=== PATIENT | male | born 1960 ===

== ENCOUNTER 2017-07-25 18:47 | Inpatient (IN) | payer BC, OTHER ==
[~2017-07-25] VITALS: Ht 182.9 cm; Wt 104.3 kg
[2017-07-25] MEDS ORDERED: LORAZEPAM 1 MG TABLET PO PRN ×2 (20:15)
[2017-07-25] MEDS ORDERED: ONDANSETRON ODT 4 MG TAB.RAPDIS SL PRN (20:15)
[2017-07-25] MEDS ORDERED: hydrALAZINE HCL 50 MG TABLET PO PRN (20:15)
[2017-07-25] MEDS ORDERED: LORAZEPAM 2 MG/1 ML VIAL IM PRN (20:15)
[2017-07-25] MEDS ORDERED: diphenhydrAMINE 50 MG CAPSULE PO PRN (20:15)
[2017-07-25] MEDS ORDERED: DICYCLOMINE HCL 20 MG TABLET PO PRN (20:15)
[2017-07-25] MEDS ORDERED: ONDANSETRON 4 MG/2 ML VIAL IM PRN (20:15)
[2017-07-25] MEDS ORDERED: MIRALAX 17 GM POWD.PACK PO PRN (20:15)
[2017-07-25] MEDS ORDERED: MAGNESIUM HYDROXIDE 30 ML LIQUID UDC PO PRN (20:15)
[2017-07-25] MEDS ORDERED: IBUPROFEN 400 MG TABLET PO PRN (20:15)
[2017-07-25] MEDS ORDERED: LOPERAMIDE HCL 2 MG CAPSULE PO PRN ×2 (20:15)
--- NOTE | 2017-07-25 20:25 | NUR ---
PRE ADMISSION NOTE Pt is a 57 y/o male seen at intake, A & O x 4, and presents with anxiety, agitation, restlessness, tremors, sweats, flushed skin, generalized pain r/t chronic and acute medical conditions 8/10, visual disturbances, slumped posture, disheveled appearance and flat affect. Pt is ambulatory with cane for assistance. Pt reports PMH of anxiety, depression, bipolar disorder, HTN, IBS, gout, venous thromboembolic disease, rheumatoid arthritis, 10th rib fx (10 days ago), umbilical hernia, spondylosis with history of left shoulder repair x 2, pneumonia, stomach ulcers, back injury and L5/S1 spinal surgery. Pt has history of falls, last being in April 2017. Vitals signs are as follows: 144/93, HR 114, RR 18, 02 95%, Pain 8/10. Pt denies seizure hx and reports NKA. Pt arrived from a treatment facility for medically supervised detox. Pt brought home medications, instructed patient that any controlled substances will not be given back, pt verbalized understanding. Educated patient rules and policies of the unit including handling of contraband and taking vital signs Q4H. Will continue care of patient upon arrival on unit.
--- NOTE | 2017-07-25 20:36 | NUR ---
ADMISSION NOTE Pt is a 57 y/o male arrived on the unit at 2035 on 07/25/17 for medically supervised withdrawal from ETOH (Vodka/Tequila). Pt reports his last drink was on Tuesday07/22/17 and is currently in withdrawal. Pt reports he was at a treatment facility for 2.5 days and was started on an Ativan taper, but d/t worsening withdrawal, diarrhea and unstable gait was recommended to a medially supervised detox and therefore transferred to this facility today. Substance Use History: 1. Vodka or Tequila 750 ml daily, last intake of 750 ml on 07/22/17, at this rate for 4 years. Pt is A&Ox4, speech is slow and lethargic. Pt appears disheveled and umkempt with poor eye contact and presents with anxiety, agitation, restlessness, tremors, difficulty concentrating, sweats, flushed skin, tachycardia, pain everywhere 8/10, visual disturbances and flat affect. Pt unable to state exact S/S of withdrawal r/t difficulty concentrating, stated "I just feel hungover." Vitals signs are as follows: BP 144/93, HR 114, RR 18, 02 95%, Pain 8/10. Pulse regular but tachycardic. Respirations even and unlabored. Lung sounds clear. Bowel sound active in all 4 quadrants. Pt has distended abdomen with umbilical hernia. Pt reports having diarrhea, last BM this morning. Pt has dry/cracked skin on left heel. Pt is full code, NKA, regular diet and on fall/seizure precautions. Skin and body check completed, skin intact and no contraband bound. Initial CIWA 12. Pt is 60 and weighs 230 lbs. Pt not candidate for MRSA, denies being hospitalized or in group home in past 30 days. Pt reports smoking 3 cigars daily, denies smoking cigarettes, denies interest in smoking cessation at this time. Pt refuses pneumonia vaccine. Denies family medical or substance use history. Pt reports his longest sober period was 2 days, approximately 4 years ago. Pt reports going to [facility] treatment facility at unknown date and treatment facility with unknown name in [place] for 2.5 days prior to arrival. Pt states he has a limited support system and that his from him in December 2016. Pt has no children or friends for support. Pt lives in his car. Pt is on disability and is unemployed. Pt states "I don't want to be living like this anymore...I also want my back." Pt states he is "ready to get fully detoxed and continue with further treatment to help." Pt states he has been drinking daily r/t his recent marriage separation, cravings and chronic and acute pains. Pts primary care doctor is Dr. Matthew Ramirez, flat machine cutter Dr. Fausto Adams and his material assistant is Dr. Mehran Trejo. Pt reports PMH of anxiety, depression, bipolar disorder, HTN, IBS, gout, insomnia, venous thromboembolic disease, rheumatoid arthritis, 10th rib fx (10 days ago), umbilical hernia, spondylosis with history of left shoulder repair x 2, pneumonia, stomach ulcers, back injury and L5/S1 spinal surgery. Pt had outpatient treatment for rib fx 10 days prior to admission. Pt has history of falls, last being in April 2017. Pt takes the following home medications: Tylenol, Amlopdipine, Chlorthalidone, Benadryl, Doxycycline monohydrate, Folic Acid, Gabapentin, Hydroxyzine Pamoate, Methocarbomol succinate, Olanzapine, Ondansetron, Predisone, Thiamine Hcl, Trazodone, Valsartan, Venlafaxine Hcl, Vitamin K2 and Warfarin. Addendum: 07/26/17 at 0646 by SHEELA SY RN Additional information: Pt reports history of pulmonary embolism and DVT in right thigh approximately 8 years ago. Pt placed on 1:1 for fall precautions/safety. Stool culture sample to be obtained per orders. VTE pumps in place per orders.
[2017-07-25] MEDS ORDERED: PATIENT MAY USE OWN MED- MD OK PO SCH (21:00)
[2017-07-25] MEDS ORDERED: LORAZEPAM 1 MG TABLET PO SCH (21:00)
[2017-07-25] MEDS ORDERED: HYDR-3026 PO (21:29)
[2017-07-25] MEDS ORDERED: TRAZ-144 PO ×2 (21:29)
[2017-07-25] MEDS ORDERED: VENL37.591 PO (21:29)
[2017-07-25] MEDS ORDERED: VALS160T2 PO (21:29)
[2017-07-25] MEDS ORDERED: HYDR-3895 PO (21:29)
[2017-07-25] MEDS ORDERED: METH-406 PO (21:29)
[2017-07-25] MEDS ORDERED: GABA-534 PO (21:29)
[2017-07-25] MEDS ORDERED: OLAN5TAB30 PO (21:29)
[2017-07-25] MEDS ORDERED: FEBU40TA PO (21:29)
[2017-07-25] MEDS ORDERED: FOLI1TAB16 PO (21:29)
[2017-07-25] MEDS ORDERED: METO-357 PO (21:29)
[2017-07-25] MEDS ORDERED: CHLO25TA2 PO (21:29)
[2017-07-25] MEDS ORDERED: THIA100T13 PO (21:29)
[2017-07-25] MEDS ORDERED: ONDA4TAB10 PO (21:29)
[2017-07-25] MEDS ORDERED: AMLO10TA2 PO (21:29)
[2017-07-25 21:31] LABS: *AMPHETAMINE, URINE NEGATIVE (NEGATIVE); *BARBITURATE, URINE POSITIVE (NEGATIVE); *CANNABINOID, URINE NEGATIVE (NEGATIVE); *COCCAINE, URINE NEGATIVE (NEGATIVE); *OPIATE, URINE NEGATIVE (NEGATIVE); *PHENCYCLIDINE SCREEN,URINE NEGATIVE (NEGATIVE)
[2017-07-25] MEDS ORDERED: ACET-2154 PO (21:37)
[2017-07-25] MEDS ORDERED: DOXY100C41 PO (21:37)
[2017-07-25] MEDS ORDERED: DIPH25CA83 PO (21:37)
[2017-07-25] MEDS ORDERED: VITA40TA PO (21:37)
[2017-07-25] MEDS ORDERED: WARF-68 PO (21:37)
[2017-07-25] MEDS ORDERED: PRED20TA PO (21:37)
[2017-07-25] MEDS: [UNRECOGNIZED DRUG - OTHER] PO SCH (21:45)
[2017-07-25] MEDS: [UNRECOGNIZED DRUG - OTHER] PO SCH (21:45)
[2017-07-25] MEDS: METOPROLOL PO SCH (21:45)
[2017-07-25] MEDS: ACETAMINOPHEN 325 MG TABLET PO PRN (21:45)
--- NOTE | 2017-07-25 21:45 | NUR ---
MADDIE PEREIRA AND MOTRIN ADMINISTRATION Pt requests sleep aid and reports "pain all over," 12/09 r/t chronic and acute pains from rib injury, back injury, arthritis. Safety measures in place. Call light within reach. Will continue to monitor. Addendum: 07/26/17 at 0640 by SHEELA SY RN CORRECTION:TYLENOL ADMINISTRATION NOT MOTRIN
[2017-07-25 22:05] LABS: BASOPHILS # (AUTO) 0.1 K/uL (0.0-8.0); BASOPHILS % (AUTO) 0.7 % (0.0-2.0); EOSINOPHILS # (AUTO) 0.2 K/uL (0.0-0.7); EOSINOPHILS % (AUTO) 1.8 % (0.0-7.0); HEMATOCRIT 40.1 % (36.7-47.1); HEMOGLOBIN 13.6 g/dL (12.5-16.3); LYMPHOCYTES # (AUTO) 0.7 K/uL (20.0-40.0); LYMPHOCYTES % (AUTO) 8.8 % (20.5-51.5); MEAN CORPUSCULAR HEMOGLOBIN 33.9 uug (23.8-33.4); MEAN CORPUSCULAR HGB CONC 34 g/dL (32.5-36.3); MEAN CORPUSCULAR VOLUME 99.9 fL (73.0-96.2); MONOCYTES # (AUTO) 0.7 K/uL (2.0-10.0); MONOCYTES % (AUTO) 8.3 % (0.0-11.0); NEUTROPHILS # (AUTO) 6.8 K/uL (1.8-8.9); NEUTROPHILS % (AUTO) 80.4 % (38.5-71.5); PLATELET COUNT (AUTO) 160 K/uL (152-348); RED BLOOD CELL COUNT(AUTO) 4.01 MIL/uL (4.06-5.63); WHITE BLOOD COUNT (AUTO) 8.5 K/uL (3.6-10.2)
[2017-07-25 22:10] LABS: ETHANOL < 3 MG/DL (0-0)
[2017-07-25 22:18] LABS: ALANINE AMINOTRANSFERASE 31 U/L (16-63); ALKALINE PHOSPHATASE 85 U/L (50-136); AMYLASE 61 U/L (25-115); ASPARTATE AMINOTRANSFERASE 29 U/L (15-37); BILIRUBIN,TOTAL 0.9 mg/dL (0.2-1.0); CARBON DIOXIDE 27 mmol/L (21-32); CHLORIDE 97 mmol/L (98-107); GLUCOSE 95 mg/dL (74-106); MAGNESIUM 1.6 mg/dL (1.8-2.4); POTASSIUM 3.6 mmol/L (3.5-5.1); UREA NITROGEN, BLOOD 15 mg/dL (7-18); URIC ACID 6.1 mg/dL (3.5-7.2)
--- NOTE | 2017-07-25 22:45 | NUR ---
MADDIE PEREIRA AND BONI REASSESSMENT Pt laying in bed with eyes closed, medications noted effective. Respirations even and unlabored. Safety measures in place. Call light within reach. Will continue to monitor. Addendum: 07/26/17 at 0640 by SHEELA SY RN CORRECTION:TYLENOL ADMINISTRATION NOT MOTRIN
[2017-07-25] MEDS: MAGNESIUM OXIDE 400 MG TABLET PO ONE ×2 (23:15→23:33)
[2017-07-26] VITALS: BP 142/90
[2017-07-26 04:00] VITALS: BP 140/91
--- NOTE | 2017-07-26 04:00 | NUR ---
CIWA DEFERRED Pt laying in bed with eyes closed, CIWA deferred, to be assessed when pt is awake per orders. Respirations even and unlabored. Safety measures in place. 1:1 sitter at bedside. Will continue to monitor.
[2017-07-26] MEDS: ACETAMINOPHEN 325 MG TABLET PO PRN ×2 (06:28→20:08)
--- NOTE | 2017-07-26 06:28 | NUR ---
PRN TYLENOL ADMINISTRATION Pt reports pain 7/10 "all over." Safety measures in place. 1:1 sitter at bedside. Will continue to monitor.
--- NOTE | 2017-07-26 07:21 | NUR ---
END OF SHIFT Pt is a 57 y/o male admitted on 07/25/17 for ETOH withdrawal. Pt started a 5 day Ativan taper on 07/25/17, tolerated first dose well. Pt presented with disheveled and umkempt appearance, poor eye contact, anxiety, agitation, restlessness, tremors, difficulty concentrating, sweats, flushed skin, tachycardia, increased BP, pain everywhere 8/10, visual disturbances and flat affect. Pt reports having diarrhea while at the treatment facility he was transferred from, last BM on 07/25/17. Stool sample to be collected per orders. Pt is ambulatory with cane for assistance with unsteady gait. Pt placed on 1:1 for fall precautions/safety. Pt reported having diarrhea, last BM yesterday. Pt has dry/cracked skin on left heel. Swelling present in bilateral feet, elevated feet while sleeping. VTE score 5, VTE pumps ordered and placed and on Warfarin. Mg 1.6, replaced with 800 mg of Mag Ox. Scheduled medications and PRN Benadryl and Tylenol x 2 administered, effective in S/S of withdrawal AEB CIWA 12 lowered to 7 during shift. Pt slept 6 hours. Intake 500 ml, void x 2, stool x 0. Safety measures in place. 1:1 sitter at bedside. Pts needs have been met. Endorsed to day shift nurse.
--- NOTE | 2017-07-26 07:28 | NUR ---
TYLENOL REASSESSMENT Per patient Tylenol was effective body aches lower to 2/10.
--- NOTE | 2017-07-26 07:57 | NUR ---
START OF SHIFT NOTE Received report from night nurse, 57 year old admitted for ETOH withdrawal. Patient cont on Ativan taper tolerated well. Per endorsement patient was given PRN Benadryl, Motrin, effective per night nurse. Last CIWA was 7, slept for 6 hours. VTE score 5 and VTE pumps on [address]. Patient cont on 1:1 for safety. Received patient alert awake anxious, agitated, body aches, nausea, swats. Patient scheduled for routine medications. Educated patient with current plan care of the care and medication regimen and importance of attending groups and activities with good verbal understanding. Safety measures in place. Will cont with plan of care.
[2017-07-26 08:00] VITALS: BP 172/112
[2017-07-26] MEDS: THIAMINE HCL 100 MG TABLET PO SCH (08:16)
--- NOTE | 2017-07-26 08:16 | NUR ---
PRN HYDRALAZINE Patient's blood pressure noted 172/112, HR-100, PRN Hydralazine 50mg PO given as ordered. Will cont to monitor and reassess the pt.
[2017-07-26] MEDS: MULTIVITAMINS,THERAPEUTIC TABLET PO SCH (08:17)
[2017-07-26] MEDS: FOLIC ACID 1 MG TABLET PO SCH (08:17)
[2017-07-26] MEDS ORDERED: PATIENT MAY USE OWN MED- MD OK PO SCH ×4 (09:00)
[2017-07-26] MEDS ORDERED: TUBERCULIN,PURIF.PROT.DERIV. 5 TU/0.1 ML TEST ID ONE (09:00)
[2017-07-26] MEDS ORDERED: LORAZEPAM 1 MG TABLET PO SCH ×2 (09:00→21:00)
--- NOTE | 2017-07-26 09:16 | NUR ---
HYDRALAZINE REASSESSMENT Blood pressure noted 133/79, HR-95. hydralazine noted effective.
[2017-07-26] MEDS: [UNRECOGNIZED DRUG - OTHER] PO SCH ×3 (10:11→20:08)
[2017-07-26 12:00] VITALS: BP 145/97
[2017-07-26] MEDS: VALSARTAN 160 MG TABLET PO SCH (12:46)
[2017-07-26] MEDS: LORAZEPAM 1 MG TABLET PO SCH ×2 (12:46→16:25)
[2017-07-26] MEDS: CHLORTHALIDONE 25 MG TABLET PO SCH (12:46)
--- NOTE | 2017-07-26 13:28 | NUR ---
NEW ORDER Patient noted o2 desaturation between 90% to 93% MD notified and ordered O2 2L/min via nasal cannula. Administered oxygen as ordered and noted with 96% O2 sat.
--- NOTE | 2017-07-26 13:45 | NUR ---
PT EVAL order PT Eval for unsteady gait. Patient remains on 1:1 for safety at this time. Safety measures in place.
--- NOTE | 2017-07-26 14:04 | NUR ---
Nursing note Pt has an opening on his left heel. Pt reports that it started as a crack from dry skin and became bigger. The crack is deep, dry, with brown tissue on the edges. Contacted Dr. Leija with orders to call for podiatry consult. Contacted Dr. Wise's office. He will see the patient today per his gauge maker.
[2017-07-26] MEDS ORDERED: LIDOCAINE 5% OINT 35.44 GM TUBE TOP PRN (15:30)
[2017-07-26 16:00] VITALS: BP 149/70
[2017-07-26] MEDS: WARFARIN SODIUM 5 MG TABLET PO SCH (16:27)
[2017-07-26] MEDS: hydrALAZINE HCL 50 MG TABLET PO PRN (18:06)
--- NOTE | 2017-07-26 18:06 | NUR ---
PRN HYDRALAZINE Patient's blood pressure noted 183/94, HR-110. PRN Hydralazine 75mg PO given as ordered. Will cont to monitor and reassess.
--- NOTE | 2017-07-26 19:06 | NUR ---
HYDRALAZINE REASSESSMENT Blood pressure noted 141/82, HR-98, O2 sat -96% Hydralazine noted to be effective.
--- NOTE | 2017-07-26 19:12 | NUR ---
END OF SHIFT NOTE Gave report to night nurse, 57 year old male admitted for ETOH withdrawal. Patient is on Ativan taper tolerating well. Patient presented with anxiety, agitation, tremors, elevated blood pressure. during shift patient was given PRN hydralazine x2 noted to be effective. patient was seen and evaluated by PT, and cont with 1:1 for safety. Patient rested in his room most of the time. Patient was encouraged to participates in groups therapy session. Encourage diversional activities to alleviate anxiety. Patient denies any SI/HI. Safety measures in place. Patient endorsed to night nurse in stable condition.
--- NOTE | 2017-07-26 19:30 | NUR ---
START OF SHIFT Pt is a 57 y/o male admitted on 07/25/17 for ETOH withdrawal. Pt started a 5 day Ativan taper on 07/25/17, tolerating well. Per day shift nurse, last CIWA 11 and PRN Hydralazine administered. Pt was placed on nasal cannula 2L per order d/t SP02 90-93% on RA, with therapy SP02 remains at 96-97%. Denies SOB. Upon assessment, pt presents with disheveled and umkempt appearance, poor eye contact, anxiety, agitation, restlessness, tremors, difficulty concentrating, sweats, flushed skin, tachycardia, increased BP, pain everywhere 8/10, visual hallucinations and flat affect. Pt A&Ox4 and denies auditory hallucinations. Stool sample results and PT eval pending. Pt is ambulatory with cane for assistance with unsteady gait. Pt placed on 1:1 for fall precautions/safety. Pt has dry/cracked skin on left heel, requests cream for skin. Swelling present in bilateral feet, elevated feet. VTE score 5, VTE pumps in place and on Warfarin. Medications due. Safety measures in place. 1:1 sitter at bedside. Will continue to monitor.
[2017-07-26 20:00] VITALS: BP 136/85
[2017-07-26] MEDS: OLANZAPINE 2.5 MG TABLET PO SCH (20:08)
[2017-07-26] MEDS: [UNRECOGNIZED DRUG - OTHER] PO SCH (20:08)
[2017-07-26] MEDS: METOPROLOL PO SCH (20:08)
[2017-07-26] MEDS: AMLODIPINE 10 MG TABLET PO SCH (20:09)
[2017-07-26] MEDS: MINERAL OIL/PETROLATUM,WHITE 57 GM TUBE TOP PRN (20:09)
--- NOTE | 2017-07-26 20:09 | NUR ---
PRN EUCERIN CREAM AND TYLENOL ADMINISTRATION Pt requests Eucerin cream for dry/cracked heel and reports pain 8/10 in lower back. Safety measures in place. Call light within reach. Will continue to monitor.
--- NOTE | 2017-07-26 21:09 | NUR ---
PRN TYLENOL REASSESSMENT Pt reports pain reduced to tolerable level. Pt also states "I'm comfortable." Safety measures in place. Call light within reach. Will continue to monitor.
[2017-07-27] VITALS: BP 145/92
--- NOTE | 2017-07-27 | NUR ---
CIWA DEFERRED Pt laying in bed with eyes closed, CIWA deferred, to be assessed when pt is awake per orders. Respirations even and unlabored. Safety measures in place. Call light within reach. Will continue to monitor.
[2017-07-27 04:00] VITALS: BP 152/101
[2017-07-27] MEDS: ACETAMINOPHEN 325 MG TABLET PO PRN ×2 (04:47→12:23)
[2017-07-27] MEDS: hydrALAZINE HCL 50 MG TABLET PO PRN (04:48)
--- NOTE | 2017-07-27 04:48 | NUR ---
PRN HYDRALAZINE AND TYLENOL ADMINISTRATION Pt reports pain in lower back 12/09. BP 152/101 HR 95, orders to give Hydralazine 75 mg. Safety measures in place. Call light within reach. Will continue to monitor. Addendum: 07/27/17 at 0647 by SHEELA SY RN PRN ATIVAN 1 MG ADMINISTERED AT SAME TIME CIWA 9, orders to give PRN Ativan 1 mg. Pt presents with anxiety, agitation, restlessness and visual disturbances.
--- NOTE | 2017-07-27 05:48 | NUR ---
PRN HYDRALAZINE, ATIVAN 1 MG, TYLENOL REASSESSMENT BP 142/89 HR 90. CIWA lowered to 8, pt laying in bed and presents with anxiety, restlessness, agitation, visual disturbances. Denies auditory hallucinations. A&Ox4. Pt reports improvement in lower back pain to 09/08. Safety measures in place. Call light within reach. Will continue to monitor. Addendum: 07/27/17 at 0648 by SHEELA SY RN CORRECTION: PATIENT HAS IMPROVEMENT IN ANXIETY, AGITATION AND VISUAL DISTURBANCES.
--- NOTE | 2017-07-27 07:24 | NUR ---
END OF SHIFT Pt is a 57 y/o male admitted on 07/25/17 for ETOH withdrawal. Pt started a 5 day Ativan taper on 07/25/17, tolerating well. Pt placed on nasal cannula 2L per order d/t SP02 90-93% on RA, with therapy SP02 remains at 96-97%. Denied SOB throughout shift. Pt presented with disheveled and umkempt appearance, poor eye contact, anxiety, agitation, restlessness, tremors, difficulty concentrating, sweats, flushed skin, tachycardia, increased BP, lower back pain 8/10, visual hallucinations and flat affect. Pt A&Ox4 and denies auditory hallucinations. Pt uses cane for assistance and has unsteady gait. Pt placed on 1:1 for fall precautions/safety. Pt has dry/cracked skin on left heel, Eucerin cream administered. VTE pumps in place and on Warfarin. Scheduled medications and PRN Tylenol x 2 and hydralazine administered, effective S/S of withdrawal AEB CIWA 11 lowered to CIWA 8 during shift. Pt slept 8 hours. Intake of 1050 ml, void x 2, stool x 0. Safety measures in place. Call light within reach. Pts needs have been met. Endorsed to day shift nurse.
--- NOTE | 2017-07-27 07:45 | NUR ---
START OF SHIFT PT IS A 57 Y/O M ADMITTED ON 07/25/17 FOR MEDICALLY SUPERVISED ETOH WITHDRAWAL. PT IS PLACED ON A 5 DAY ATIVAN TAPER AND TOLERATING WELL. PT IS ON A 1:1 FOR UNSTEADY GAIT AND SAFETY. PT IS ON O2 2L NC ORDERED TO TITRATE TO MAINTAIN O2 SAT 95% AND ABOVE. PT DENIES SOB. PT IS A/OX4, PRESENTS FACIAL FLUSHING, ANXIETY, AGITATION, RESTLESSNESS, TACHYCARDIA, DIAPHORESIS, TREMORS, LOW BACK PAIN 5/10, DIFFICULTLY CONCENTRATING, DIFFICULTY THINKING, REPORTS FEELING WINDED WHEN WALKING. PT REPORTS SEEING "TINY MIDGETS ON HIS FEET" AND JOKES ABOUT HIS HALLUCINATIONS BUT AWARE THEY ARE NOT REAL. PT REPORTS HAVING TACTILE DISTURBANCES; PINS AND NEEDLES SENSATIONS ON HIS HANDS AND FEET. SCDS WORN AND WORKING. PT HAS CRACKED LEFT HEEL AND IS TO HAVE DEBRIBEMENT PROCEDURE TODAY BY A SPECIAL INVESTIGATION UNIT INVESTIGATOR. SIDE RAILS UPX2, BED IS IN LOWEST POSITION. CALL LIGHT WITHIN REACH. SAFETY MEASURES IN PLACE. WILL CONTINUE TO MONITOR.
[2017-07-27 08:00] VITALS: BP 155/85
[2017-07-27] MEDS: THIAMINE HCL 100 MG TABLET PO SCH (09:07)
[2017-07-27 09:08] LABS: HEPATITIS B SURFACE AG Negative (Negative)
[2017-07-27] MEDS: MULTIVITAMINS,THERAPEUTIC TABLET PO SCH (09:08)
[2017-07-27] MEDS: FOLIC ACID 1 MG TABLET PO SCH (09:08)
[2017-07-27] MEDS: LORAZEPAM 1 MG TABLET PO SCH ×2 (09:08→14:29)
[2017-07-27] MEDS: CHLORTHALIDONE 25 MG TABLET PO SCH (09:09)
[2017-07-27] MEDS: [UNRECOGNIZED DRUG - OTHER] PO SCH ×3 (09:09→20:49)
[2017-07-27] MEDS: VALSARTAN 160 MG TABLET PO SCH (09:11)
[2017-07-27] MEDS: MAG HYDROX/AL HYDROX/SIMETH 30 ML LIQUID UDC PO PRN ×3 (09:18→20:49)
--- NOTE | 2017-07-27 09:18 | NUR ---
PRN/ MAALOX PT REPORTS HAVING HEARTBURN AND REQUESTED MAALOX. WILL MONITOR FOR EFFECTIVENESS.
[2017-07-27] MEDS ORDERED: LIDOCAINE 5% OINT 35.44 GM TUBE TOP SCH ×2 (09:45→11:00)
--- NOTE | 2017-07-27 10:18 | NUR ---
REASSESSMENT PT REPORTED MED EFFECTIVE AND NO HEARTBURN NOTED. WILL CONTINUE TO MONITOR.
[2017-07-27 12:00] VITALS: BP 125/90
--- NOTE | 2017-07-27 12:23 | NUR ---
PRN/ TYLENOL TYLENOL 650 MG PO PRN GIVEN FOR BACK ACHE 11/08. WILL MONITOR FOR EFFECTIVENESS.
--- NOTE | 2017-07-27 12:23 | NUR ---
REASSESSMENT PT REPORTED PAIN DECREASED TO 5/10. PT STATES WALKING IN THE HALLWAYS INCREASED PAIN BUT NOW IS BETTER. WILL CONTINUE TO MONITOR.
--- NOTE | 2017-07-27 15:00 | NUR ---
OKAYED PT TO HAVE COUMADIN. NO INR LABS ON SHIFT.
[2017-07-27 16:00] VITALS: BP 133/88
[2017-07-27] MEDS: WARFARIN SODIUM 5 MG TABLET PO SCH (16:30)
--- NOTE | 2017-07-27 16:30 | NUR ---
PRN/MAALOX PT IN PAIN FROM HEARTBURN WITH FACIAL GRIMACING AND TOUCHING HIS STOMACH AREA. MAALOX GIVEN, WILL MONITOR FOR EFFECTIVENESS.
--- NOTE | 2017-07-27 17:30 | NUR ---
REASSESSMENT PT APPEARS CALM AND SLEEPING AT THIS TIME. WILL CONTINUE TO MONITOR AND PROVIDE SUPPORT.
--- NOTE | 2017-07-27 18:45 | NUR ---
END OF SHIFT PT LAST CIWA IS 12 @1600. PT REMAINS ON A O2 NC 2L TITRATED TO KEEP O2 SAT 95% AND ABOVE. PT REMAINS ON A 1:1 FOR UNSTEADY GAIT AND HAS SCDS WHILE IN BED FOR VTE 5. PT HAS HAD MAALOX X2 AND TYLENOL PRNS DURING SHIFT. PT HAS HAD FINAL GAIT TRAINING WITH PT AND INTRUCTIONS EVEN TO PT ON HOW TO STAND UP FROM BED AND WALK SAFELY. PT ATE 100% OF MEALS. PT HAD DEBRIBEMENT PROCEDURE DONE BY SHAKE BACKBOARD NOTCHER DURING SHIFT. PT HAS TAKEN A SHOWER TODAY ON SHIFT. SAFETY MEASURES IN PLACE. WILL ENDORSE TO COLLEGE OR UNIVERSITY FACULTY MEMBER NURSE.
[2017-07-27 20:00] VITALS: BP 156/91
--- NOTE | 2017-07-27 20:00 | NUR ---
Start of Shift Nurse Received a 57 y/o male px, admitted for medically supervised withdrawals from ETOH. Px was placed on 5 day Ativan taper, started on 07/25/2017. Px is tolerating well. Last reported CIWA 12 by AM shift nurse. Px is on 1 to 1 for unsteady gait. During the rounds at 1999, px is awake on bed in fowlers position. Px is on intermittent compression device. Px looks anxious, and disheveled. Unfinished drinks noted on top of bed side table. Px stated "I have pain on my back 7/10". "My anxiety is 5/10". "Can I have Maalox tonight?" Bed on lowest position, side rails up 2x and call light within reach. We'll continue to monitor.
[2017-07-27] MEDS: AMLODIPINE 10 MG TABLET PO SCH (20:49)
[2017-07-27] MEDS: OLANZAPINE 2.5 MG TABLET PO SCH (20:49)
--- NOTE | 2017-07-27 20:49 | NUR ---
PRN Maalox Px requested for Maalox. Px stated "I am having heartburns after I take a bunch of pills, will you give me Maalox?" Maalox 30 ml given PO. We'll continue to monitor.
[2017-07-27] MEDS: METOPROLOL PO SCH (20:50)
[2017-07-27] MEDS: [UNRECOGNIZED DRUG - OTHER] PO SCH (20:50)
[2017-07-27] MEDS: METOPROLOL SUCCINATE XL 25 MG TAB.SR.24H PO SCH (20:50)
[2017-07-27] MEDS ORDERED: LORAZEPAM 1 MG TABLET PO SCH (21:00)
--- NOTE | 2017-07-27 21:50 | NUR ---
Reassessment of heartburns Px stated that he doesn't have heartburns after an hour of administration of Maalox.
[2017-07-28] VITALS: BP 132/66
[2017-07-28] MEDS: ACETAMINOPHEN 325 MG TABLET PO PRN ×2 (03:03→15:20)
--- NOTE | 2017-07-28 03:03 | NUR ---
PRN Tylenol Px complained of H/A of 10/09. Tylenol 325 mg/tab, 2 tabs given PO. To reassess after an hour.
[2017-07-28 04:00] VITALS: BP 133/77
--- NOTE | 2017-07-28 04:00 | NUR ---
CIWA deferred CIWA deferred due to the px is asleep at 0000 and 0400, to assess if the px awake per doctor's order. We'll continue to monitor.
--- NOTE | 2017-07-28 04:03 | NUR ---
Reassessment of H/A Px stated that his H/A improved from 6/10 to 3/10. We'll continue to monitor.
--- NOTE | 2017-07-28 07:50 | NUR ---
START OF SHIFT Rcvd endorse from ongoing nurse, client is in bed, a/o x 4. client presents with anxious mood, flat affect, flushed face, tremors, and clammy skin. Client report restless legs, generalized body aches, irritability, headache, chills, decreased appetite, mild nausea, and fatigue. Client had an uneventful night, slept 5 hrs. Client is on 1:1 sitter for safety. Encourage client to attend group therapy to learn skills to maintain sober. Encourage client to increase PO fluid as tolerated to facilitate detox. L heel with dry skin, client is schedule for debridment of callus, consent sign and file in chart. Client is on 5 day Ativan taper. Last CIWA 11 @ 0400. Call light within reach. Will continue to monitor.
[2017-07-28] MEDS: THIAMINE HCL 100 MG TABLET PO SCH (08:11)
[2017-07-28] MEDS: MULTIVITAMINS,THERAPEUTIC TABLET PO SCH (08:11)
[2017-07-28] MEDS: FOLIC ACID 1 MG TABLET PO SCH (08:11)
[2017-07-28] MEDS: [UNRECOGNIZED DRUG - OTHER] PO SCH ×3 (08:12→21:09)
[2017-07-28] MEDS: CHLORTHALIDONE 25 MG TABLET PO SCH (08:12)
[2017-07-28] MEDS: VALSARTAN 160 MG TABLET PO SCH (08:13)
[2017-07-28] MEDS: MAG HYDROX/AL HYDROX/SIMETH 30 ML LIQUID UDC PO PRN ×2 (08:17→21:22)
--- NOTE | 2017-07-28 08:17 | NUR ---
PRN Maalox 30mL PO administered for heartburn.
[2017-07-28 08:20] VITALS: BP 132/94
[2017-07-28] MEDS ORDERED: LORAZEPAM 1 MG TABLET PO SCH (09:00)
--- NOTE | 2017-07-28 09:17 | NUR ---
Reassess PRN Maalox 30mL, client reports relief from heartburn.
--- NOTE | 2017-07-28 10:13 | NUR ---
Zero induration noted on R forearm PPD test site.
[2017-07-28 12:20] VITALS: BP 136/87
[2017-07-28] MEDS: LORAZEPAM 1 MG TABLET PO SCH ×2 (14:33→21:08)
--- NOTE | 2017-07-28 15:00 | NUR ---
STOOL CULTURE, C.DIFFICILE TOX STOOL CULTURE Final NO SALMONELLA OR SHIGELLA ISOLATED
--- NOTE | 2017-07-28 15:20 | NUR ---
PRN Tylenol 650mg PO administered for lower back pain 10/09. Will continue to monitor.
[2017-07-28] MEDS: METHOCARBAMOL 750 MG TABLET PO PRN ×2 (15:39→21:08)
--- NOTE | 2017-07-28 15:39 | NUR ---
PRN Robaxin 750mg PO administered for muscle spasms on lower back . Will continue to monitor
[2017-07-28 16:00] VITALS: BP 148/84
--- NOTE | 2017-07-28 16:20 | NUR ---
Reassess PRN Tylenol 650mg, client reports relief from lower back pain 2/10, but tolerable.
[2017-07-28] MEDS ORDERED: AMLO10TA2 PO (16:30)
[2017-07-28] MEDS ORDERED: WARF5TAB77 PO (16:30)
[2017-07-28] MEDS ORDERED: CHLO25TA2 PO (16:30)
[2017-07-28] MEDS ORDERED: METO-356 PO (16:30)
[2017-07-28] MEDS ORDERED: VALS160T2 PO (16:30)
--- NOTE | 2017-07-28 16:39 | NUR ---
Reassess PRN Robaxin 750mg, client reports relief from muscle spasms on lower back.
[2017-07-28] MEDS: WARFARIN SODIUM 5 MG TABLET PO SCH (16:56)
[2017-07-28] MEDS: MINERAL OIL/PETROLATUM,WHITE 57 GM TUBE TOP PRN (16:59)
--- NOTE | 2017-07-28 16:59 | NUR ---
PRN Eucerin creme TOP applied to L heel for dry skin. Will continue to monitor
--- NOTE | 2017-07-28 17:59 | NUR ---
Reassess MADDIE junior, client stated, "I feel better, thank you."
--- NOTE | 2017-07-28 19:15 | NUR ---
Debridement of callus and/or underlying ulcerations and signs of infection L heel performed by Dr Arciniega. Wound culture specimen collected. If dressing gets wet, to reinforce it. Tomorrow change dressing and apply lidocaine, cover with gauze, and wrap with Kerlix once a day. CN notified.
--- NOTE | 2017-07-28 19:30 | NUR ---
Start of Shift Note: Patient is a 57 y.o male admitted on 07/25/17 for medically supervised withdrawal from ETOH. Patient is alert & oriented x4. Patient noted with an anxious/irritable mood, has flushed and clammy skin. Patient presented with 6/10 generalized body aches, fine tremors and has anxiety. Patient uses a cane to ambulate. Patient currently on 1:1 sitter. Patient had a debridement done on his left heel. Dressing intact. Continues on his Ativan taper and tolerating taper well. Last CIWA is 14. Pt received PRN Maalox, Tylenol & Robaxin during day shift and were effective per report. Encourage pt to increase fluid intake. Educated patient of current plan of care for the night. Safety measures in place. Will continue to monitor patient.
--- NOTE | 2017-07-28 19:54 | NUR ---
END OF SHIFT Endorse client to incoming nurse, client is in bed, a/o x 4. client continues to presents with anxious mood, flat affect, and clammy skin. Client report restless legs, chills, and decreased appetite. PRN's given and noted per protocol, see emar. Client continues to be on 1:1 sitter. Client was not compliant with group therapy. Last CIWA 14 @ 1600. Client consumed ~75% of meals. Adequate PO fluid intake 2100mL, void x 5, stool x1. Call light within reach. Will continue to monitor.
[2017-07-28 20:00] VITALS: BP 143/101
[2017-07-28] MEDS: AMLODIPINE 10 MG TABLET PO SCH (21:08)
[2017-07-28] MEDS: TRAZODONE 50 MG TABLET PO PRN (21:08)
[2017-07-28] MEDS: OLANZAPINE 2.5 MG TABLET PO SCH (21:08)
--- NOTE | 2017-07-28 21:08 | NUR ---
PRN Robaxin/Trazodone Patient complained of 6/10 generalized body aches, pt also requesting for medication to help him sleep. PRN Robaixn and Trazodone administered as ordered. Will continue to monitor patient.
[2017-07-28] MEDS: METOPROLOL SUCCINATE XL 25 MG TAB.SR.24H PO SCH (21:09)
[2017-07-28] MEDS: METOPROLOL PO SCH (21:09)
[2017-07-28] MEDS: [UNRECOGNIZED DRUG - OTHER] PO SCH (21:09)
--- NOTE | 2017-07-28 21:22 | NUR ---
PRN Maalox Patient complained of heartburn. PRN Maalox administered as ordered. Will continue to monitor.
--- NOTE | 2017-07-28 22:08 | NUR ---
PRN Reassessment Patient verbalized decreased in pain from 6/10 to 3/10 after medication administration. Patient still awake at this time and appears comfortable. Safety measures in place. Will continue to monitor patient.
--- NOTE | 2017-07-28 22:22 | NUR ---
PRN Reassessment Patient verbalized relief from heartburn after medication administration. Patient stable at this time. safety measures in place. Will continue to monitor patient.
[2017-07-29] VITALS: BP 139/90
[2017-07-29 04:00] VITALS: BP 105/65
--- NOTE | 2017-07-29 07:05 | NUR ---
End of Shift Note: Patient is a 57 y.o male admitted for medically supervised withdrawal from ETOH. Pt continues on a Ativan taper and tolerating well. Vitals noted WNL with no abnormalities noted. Continue to closely monitor signs and symptoms of withdrawal. Last CIWA 10. Pt received PRN Trazodone, Robaxin and Maalox during my shift and were effective. Pt remained compliant with medications and treatment. Pt continues on a 1:1 for safety. Pt had a debridement done on his left heel, dressing intact. Patient still asleep at this time and appears comfortable. Pt slept for a total of 5 hours. Fluid intake is 355ml. Voided 5xl with no bowel movement noted. All needs attended & met. Safety measures in place. Will endorse pt to day shift nurse.
--- NOTE | 2017-07-29 07:30 | NUR ---
START OF SHIFT Rcvd endorse from ongoing nurse, client is in bed, a/o x 4. client presents with flat affect, irritable, and anxious mood, flushed face, tremors, and clammy skin. He appears disheveled, unshaved, stating, "I do not feel like doing anything today, I am very tired." Client report restless legs, generalized body aches, irritability, headache, chills, and stomach upset. PRN Robaxin 750mg Po for muscle spasms, Maalox 30ml PO for heartburn, Trazodone for inability to sleep, slept 5 hrs. Client is on 1:1 sitter for safety. Encourage client to attend group therapy to learn skills to maintain sober. Encourage client to increase PO fluid as tolerated to facilitate detox. L heel with intact dressing, sp I&D 07/28/17. Last CIWA 10 @ 0400. Call light within reach. Will continue to monitor.
[2017-07-29] MEDS: ACETAMINOPHEN 325 MG TABLET PO PRN ×2 (07:41→20:49)
[2017-07-29] MEDS: METHOCARBAMOL 750 MG TABLET PO PRN ×2 (07:41→20:49)
--- NOTE | 2017-07-29 07:41 | NUR ---
PRN Robaxin 750mg PO, Tylenol 650mg PO administered for muscle spasms on lower back and pain 11/08 at same site . Will continue to monitor
[2017-07-29] MEDS: CHLORTHALIDONE 25 MG TABLET PO SCH (08:25)
[2017-07-29] MEDS: MULTIVITAMINS,THERAPEUTIC TABLET PO SCH (08:25)
[2017-07-29] MEDS: THIAMINE HCL 100 MG TABLET PO SCH (08:25)
[2017-07-29] MEDS: FOLIC ACID 1 MG TABLET PO SCH (08:25)
[2017-07-29] MEDS: [UNRECOGNIZED DRUG - OTHER] PO SCH ×3 (08:26→20:48)
[2017-07-29] MEDS: VALSARTAN 160 MG TABLET PO SCH (08:26)
[2017-07-29] MEDS: MAG HYDROX/AL HYDROX/SIMETH 30 ML LIQUID UDC PO PRN (08:26)
--- NOTE | 2017-07-29 08:26 | NUR ---
PRN Maalox 30mL PO administered for heartburn.
[2017-07-29 08:30] VITALS: BP 144/92
--- NOTE | 2017-07-29 08:41 | NUR ---
Reassess PRN Robaxin 750mg, Tylenol 650mg, client reports relief from muscle spasms on lower back and pain 2/10, but tolerable.
[2017-07-29] MEDS ORDERED: LORAZEPAM 1 MG TABLET PO SCH (09:00)
--- NOTE | 2017-07-29 09:26 | NUR ---
Reassess PRN Maalox 30mL, client reports relief from heartburn.
--- NOTE | 2017-07-29 10:31 | NUR ---
CN notified of culture wound results GRAM STAIN: No WBC seen, No organisms seen. WOUND CULTURE Preliminary NO GROWTH
[2017-07-29 12:11] VITALS: BP 118/84
[2017-07-29] MEDS ORDERED: SODIUM HYPOCHLORITE 0.125% 473 ML BOTTLE TP PRN (14:30)
[2017-07-29] MEDS ORDERED: NEOMY/BACITRAC/POLYMI OINT 28.35 GM TUBE TOP PRN (14:30)
[2017-07-29] MEDS ORDERED: KETOROLAC TROMETHAMINE 30 MG INJ IM PRN (15:30)
[2017-07-29] MEDS: WARFARIN SODIUM 5 MG TABLET PO SCH (16:05)
[2017-07-29] MEDS: COLCHICINE 0.6 MG TABLET PO SCH (16:06)
--- NOTE | 2017-07-29 16:06 | NUR ---
PRN Toradol 30mg IM administered to R thigh for pain on R toe 02/08. Client has hx of gout, colchicine 0.6mg PO administered.
--- NOTE | 2017-07-29 16:36 | NUR ---
Repasses PRN Toradol 30mg, client reports pain on R toe 3/10, but tolerable.
[2017-07-29 16:55] VITALS: BP 140/98
--- NOTE | 2017-07-29 19:15 | NUR ---
Start of Shift Note: Patient is a 57 y.o male admitted on 07/25/17 for medically supervised withdrawal from ETOH. Patient is alert & oriented x4. Patient noted with an anxious/irritable mood, has flushed and clammy skin. Patient presented with 8/10 pain on his right heel d/t gout flareup, pt also reports generalized body aches, noted with fine tremors and has anxiety. Patient uses a cane to ambulate. Patient currently on 1:1 sitter. Patient has an an excision debridement done on his left foot. Dressing noted to be clean, dry and intact. Pt completed his Ativan taper and is scheduled to be discharge tomorrow to [facility]. Last CIWA is 11. Pt received PRN Maalox, Tylenol & Robaxin during day shift and were effective per report. Encourage pt to increase fluid intake. Educated patient of current plan of care for the night. Safety measures in place. Will continue to monitor patient.
--- NOTE | 2017-07-29 19:21 | NUR ---
END OF SHIFT Endorse client to incoming nurse, client is in bed, a/o x 4. client continues to presents with anxious mood, flat affect, and clammy skin. Client report restless legs, chills, and decreased appetite. PRN's given and noted per protocol, see emar. Client continues to be on 1:1 sitter. Client was not compliant with group therapy. Last CIWA 11 @ 1600. Client consumed ~75% of meals. Adequate PO fluid intake 2550mL, void x 4, stool x1. Call light within reach. Will continue to monitor.
[2017-07-29 20:00] VITALS: BP 123/96
[2017-07-29] MEDS: METOPROLOL PO SCH (20:48)
[2017-07-29] MEDS: [UNRECOGNIZED DRUG - OTHER] PO SCH (20:48)
[2017-07-29] MEDS: TRAZODONE 50 MG TABLET PO PRN (20:49)
[2017-07-29] MEDS: METOPROLOL SUCCINATE XL 25 MG TAB.SR.24H PO SCH (20:49)
[2017-07-29] MEDS: AMLODIPINE 10 MG TABLET PO SCH (20:49)
[2017-07-29] MEDS: OLANZAPINE 2.5 MG TABLET PO SCH (20:49)
--- NOTE | 2017-07-29 20:49 | NUR ---
PRN Trazodone/Robaxin/Tylenol Patient complained of 8/10 pain on his right heel d/t gout flareups and also reports generalized body aches. Pt complains of unable to fall asleep d/t the pain and discomfort and requesting for sleep medication. PRN Trazodone, Robaxin & Tylenol administered as ordered. Will monitor for effectiveness of medication.
--- NOTE | 2017-07-29 21:49 | NUR ---
PRN Reassessment Patient still awake at this time. Patient verbalized decreased in pain on his right heel from 8/10 to 5/10 and body aches from 8/10 to 4/10 after medication administration. Pt in bed at this time and appears comfortable. No facial grimacing noted. Pt continues on a 1:1 sitter. Safety precautions in place. Will continue to monitor patient.
[2017-07-30] VITALS: BP 108/64
[2017-07-30] MEDS: ACETAMINOPHEN 325 MG TABLET PO PRN (05:20)
[2017-07-30] MEDS: hydrALAZINE HCL 50 MG TABLET PO PRN (05:21)
--- NOTE | 2017-07-30 05:21 | NUR ---
PRN Hydralazine & Tylenol Patient complains of severe headache, pt noted with restlessness and facial grimacing. Vitals taken. B/P 161/107, [place] 92. PRN Hydralazine & Tylenol administered as ordered. Will continue to monitor patient.
--- NOTE | 2017-07-30 06:21 | NUR ---
PRN Reassessment Pt verbalized improved headaache after medication administration. Vitals taken. B/P 121/72, MI 82, O2Sat 96% RR 16. Patient in bed and appears comfortable. Safety measures in place. Will continue to monitor patient.
--- NOTE | 2017-07-30 07:07 | NUR ---
End of Shift Note: Patient is a 57 y.o male admitted for medically supervised withdrawal from ETOH. Pt completed his Ativan taper and is scheduled to be discharge today to [facility]. Vitals stable with no abnormalities noted. Continue to closely monitor signs and symptoms of withdrawal. Last CIWA 8. Pt received PRN Trazodone, Robaxin, Tylenol 2x, & Hydralazine during my shift and were effective. Pt remained compliant with medications and treatment. Pt continues on a 1:1 for safety. Dressing intact on his left heel. Patient still asleep at this time and appears comfortable. Pt slept for a total of 6 hours. Fluid intake is 1600ml. Voided 5x with no bowel movement noted. All needs attended & met. Safety measures in place. Will endorse pt to day shift nurse.
--- NOTE | 2017-07-30 07:57 | NUR ---
Start of shift- Patient is a 57 y/o male admitted for medically supervised withdrawal from ETOH. Pt completed his Ativan taper and is scheduled to be discharge today to [facility]. Pt A&OX4. Denies c/o N/V/D. C/O pain in back and headache #5/10. Continue to closely monitor signs and symptoms of withdrawal. Last CIWA 8 at 0500. Last night Pt received PRN Trazodone, Robaxin, Tylenol 2x, & Hydralazine. Pt remained compliant with medications and treatment. Pt continues on a 1:1 for safety. Dressing intact on his left heel. Pt slept for a total of 6 hours. Pt reports NKA, FULL CODE. All safety precautions in place. Call light within reach. Will continue to monitor for withdrawal symptoms.
[2017-07-30 08:00] VITALS: BP 142/90
[2017-07-30] MEDS: FOLIC ACID 1 MG TABLET PO SCH (08:24)
[2017-07-30] MEDS: THIAMINE HCL 100 MG TABLET PO SCH (08:24)
[2017-07-30] MEDS: CHLORTHALIDONE 25 MG TABLET PO SCH (08:24)
[2017-07-30] MEDS: COLCHICINE 0.6 MG TABLET PO SCH (08:25)
[2017-07-30] MEDS: MULTIVITAMINS,THERAPEUTIC TABLET PO SCH (08:25)
[2017-07-30 08:28] VITALS: BP 142/90
[2017-07-30] MEDS: VALSARTAN 160 MG TABLET PO SCH (08:28)
[2017-07-30] MEDS: [UNRECOGNIZED DRUG - OTHER] PO SCH (08:29)
--- NOTE | 2017-07-30 09:35 | NUR ---
Discharge Note Pt is in stable condition, VS WNL, Pt denies any suicidal or homicidal ideations. Left heel has wound 1.5 cm. Before discharge cleaned wound with NS, pat dry and applied lidocaine gel around wound, apply gauze pad, then wrap with Kerlex. All discharge paperwork signed and dated. Pt was discharged from [facility] on 07/30/2017 at 0935. Pt left the building with all his medications, belongings and prescriptions. notified.
== END 2017-07-30 09:35 | disposition other institution (70) | DRG 982 ==
LOC: SRC 19:27 → EDBD 19:27
PROVIDERS: ADMIT Internal Medicine; ATTEND Internal Medicine
PROC: HZ2ZZZZ Detoxification Services for Substance Abuse Treatment (ICD-10-PCS; principal; 2017-07-25)
PROC: HZ31ZZZ Individual Counseling for Substance Abuse Treatment, Behavioral (ICD-10-PCS; 2017-07-27)
PROC: 0JBR0ZZ Excision of Left Foot Subcutaneous Tissue and Fascia, Open Approach (ICD-10-PCS; 2017-07-28)
DX: F10.239 Alcohol dependence with withdrawal, unspecified (principal); L97.429 Non-pressure chronic ulcer of left heel and midfoot with unspecified severity; I15.9 Secondary hypertension, unspecified; E83.42 Hypomagnesemia; E87.1 Hypo-osmolality and hyponatremia; E86.0 Dehydration; Y90.0 Blood alcohol level of less than 20 mg/100 ml; M06.9 Rheumatoid arthritis, unspecified; F41.9 Anxiety disorder, unspecified; M10.9 Gout, unspecified; K58.0 Irritable bowel syndrome with diarrhea; L85.9 Epidermal thickening, unspecified; M71.572 Other bursitis, not elsewhere classified, left ankle and foot; G47.00 Insomnia, unspecified; G89.29 Other chronic pain; R29.6 Repeated falls; Z86.718 Personal history of other venous thrombosis and embolism; Z82.62 Family history of osteoporosis; Z81.1 Family history of alcohol abuse and dependence; K46.9 Unspecified abdominal hernia without obstruction or gangrene; Z79.01 Long term (current) use of anticoagulants; Z59.1 Inadequate housing; M45.9 Ankylosing spondylitis of unspecified sites in spine; L85.3 Xerosis cutis; F32.9 Major depressive disorder, single episode, unspecified
CPT/HCPCS: 36415; 80307; 80345; 83735; 84550; 85025; 85610; 86580; 86592; 86625; 86705; 86803; 87046; 87070; 87177; 87340; 87806; 89055; 97116; 97530; A4663; G0480; J1885; Q0163